=== PATIENT | female | born 1955 | race Caucasian/White ===

== ENCOUNTER 2018-02-19 06:30 | Emergency (ER) | payer BC ==
[~2018-02-19] VITALS: Ht 170.2 cm; Wt 77.2 kg
[~2018-02-19 06:30] MED LIST: ALEN70TA13 PO; CALC-854 PO; ENOX40DI11 SQ; GABA-532 PO; LISI-604 PO; MULT-38 PO
[2018-02-19] MEDS ORDERED: scopolamine 1.5mg patch.TD72 TD STA (08:42)
[2018-02-19] MEDS ORDERED: normal saline 1000ml 1,000 ML IV ONE (08:45)
[2018-02-19] MEDS ORDERED: simethicone 80mg chew tab PO ONE (09:55)
[2018-02-19] MEDS ORDERED: SIME180C46 PO (09:58)
[2018-02-19] MEDS ORDERED: HYDR25SU32 RC (09:58)
[2018-02-19 11:08] VITALS: BP 126/67
[2018-02-19] MEDS ORDERED: ONDA4TAB6 PO (11:12)
[2018-02-19] MEDS ORDERED: ondansetron/PF 4mg/2ml inj IV ONE (11:15)
== END 2018-02-19 11:52 | disposition home or self-care (01) ==
LOC: ER 06:31
DX: K29.00 Acute gastritis without bleeding (principal); K64.4 Residual hemorrhoidal skin tags; Z88.5 Allergy status to narcotic agent; Z79.899 Other long term (current) drug therapy
CPT/HCPCS: 74018; 96361; 96374; 99284; J2405; J7030